=== PATIENT | female | born 1965 | race Caucasian/White ===

== ENCOUNTER 2016-10-14 13:40 | Observation (INO) ==
[2016-10-14] MEDS ORDERED: DILAUDID IV PRN (15:40)
[2016-10-14] MEDS ORDERED: ZOFRAN IV PRN (15:41)
[2016-10-14 16:21] LABS: MANUAL DIFF NEEDED? NO
[2016-10-14 16:33] LABS: BASO% 0.3 % (0.0-0.8); EOS# 0.08 X1000 (0.0-0.7); EOS% 0.8 % (0.0-10.0); HEMATOCRIT 39.1 % (37.0-47.0); HEMOGLOBIN 12.9 g/dL (12.0-16.0); IMM GRAN# 0.02 X1000 (0.0-0.04); IMM GRAN% 0.2 % (0.0-0.5); LYMPH# 1.78 X1000 (1.2-3.4); LYMPH% 16.9 % (20.5-51.1); MCH 30.9 PG (27-31); MCV 93.8 FL (81-99); MONO# 0.73 X1000 (0.11-0.59); MONO% 6.9 % (1.7-9.3); MPV 10.8 FL (7.4-10.4); NEUT% 74.9 % (42.2-75.2); PLT 197 X1000 (130-400); RBC 4.17 XMIL (4.2-5.4)
--- NOTE | 2016-10-14 16:34 | Diag Imaging Result Doc PS360 ---
EXAM: ABDOMEN FLAT/UPRIGHT HISTORY: abdominal pain TECHNIQUE: Flat and upright abdomen COMMENT: There is some stool in the colon particularly in the ascending colon. There is no evidence of small bowel or gastric distention. No evidence organomegaly or mass is present. The regional skeleton appears to be intact. There are phleboliths in the pelvis. IMPRESSION: Nonspecific abdomen. Electronically signed by Jerome Lang 10/14/2016 4:32 PM
[2016-10-14 16:51] LABS: AGAP 12; ALBUMIN 4.2 g/dL (3.5-5.0); ALKALINE PHOSPHATASE 77 U/L (32-104); AMYLASE 31 U/L (20-200); BUN 11 mg/dL (8-22); CALCIUM 9.9 mg/dL (8.8-10.2); CHLORIDE 101 mmol/L (98-107); COSMO 276; GOT 18 U/L (10-30); GPT 23 U/L (10-36); LIPASE 21 U/L (13-60); POTASSIUM 3.4 mmol/L (3.5-5.1); SODIUM 138 mmol/L (136-145); TCO2 25 mmol/L (25-35); TOTAL PROTEIN 6.6 g/dL (6.3-8.3)
[2016-10-14] MEDS ORDERED: KLOR-CON PO ONE (17:17)
[2016-10-14] MEDS: PROTONIX IV SCH (17:51)
[2016-10-14] MEDS: SODIUM CHLORIDE 0.9% INJ SCH (17:51)
[2016-10-14] MEDS: NS 1,000 ML IV SCH (17:52)
[2016-10-14 18:57] LABS: URINE CULTURE NEEDED? NO; URINE SOURCE CLEAN CATCH
[2016-10-14 19:01] LABS: BILIRUBIN URINE NEGATIVE (NEGATIVE); BLOOD URINE TRACE (NEGATIVE); COLOR YELLOW; GLUCOSE URINE NEGATIVE (NEGATIVE); LEUKOCYTES URINE NEGATIVE (NEGATIVE); NITRITE URINE NEGATIVE (NEGATIVE); PROTEIN URINE TRACE mg/dL (NEGATIVE); SP GRAVITY URINE 1.012; TURBIDITY URINE CLEAR (CLEAR); URINE MICRO REVIEW NEEDED? YES; UROBILINOGEN URINE NORMAL (NORMAL)
[2016-10-14 19:10] LABS: UR EPITHELIAL CELLS <10 /HPF (<10); URINE BACTERIA NEGATIVE /HPF; URINE RBC <10 /HPF (<10); URINE WBC <10 /HPF (<10)
[2016-10-14 19:11] LABS: URINE CRYSTALS NONE SEEN
--- NOTE | 2016-10-14 19:38 | Diag Imaging Result Doc PS360 ---
EXAM: CT ABD/PELVIS W/PO AND IV CON HISTORY: abdominal pain TECHNIQUE: CT of the abdomen and pelvis with intravenous and oral contrast and dose reduction (clarity.) COMMENT: The current study is compared without of 08/08/2012. There is platelike atelectasis in both lower lobes. This was not previously present. The abdominal aorta is not distended and the mesenteric and renal arteries are patent. There is no evidence of nephrolithiasis. The liver, spleen, adrenal glands, and pancreas are within normal limits. The gallbladder is unremarkable. There is no evidence of bowel obstruction. There are diverticula in the descending colon. No significant adenopathy is present. Pelvis: There is diverticulosis in the sigmoid colon and acute diverticulitis in the proximal sigmoid colon. There is no discrete abscess demonstrated. There are some small ovarian cysts on the left the largest of which measures 14 mm. The urinary bladder is unremarkable. There is been hysterectomy. The appendix is normal in appearance. IMPRESSION: Sigmoid diverticulitis. Electronically signed by Jerome Lang 10/14/2016 7:36 PM
--- NOTE | 2016-10-14 21:59 | HISTORY AND PHYSICAL ---
CHIEF COMPLAINT: Abdominal pain. HISTORY OF PRESENT ILLNESS: Ms. Mcgraw is a 51-year-old white female patient, not doing well since Wednesday, complaining of pain in the lower abdomen, moderate in intensity, associated with fever, chills. The patient had some nausea, poor oral intake. She denied any diarrhea. Pain was coming and going, but patient claimed it was staying for a longer time. Decreased appetite. The patient was feeling weak. I evaluated patient in the office. She did have tenderness in the left lower quadrant. Also in the suprapubic area. I was concerned. Clinically patient was looking dehydrated and I decided to admit the patient for further care. The patient denied any blood or mucus in the stool. No abdominal distention. No vaginal discharge, spotting, bleeding. No dysuria or hematuria. The patient did have fever and chills. She denied any dysphagia or odynophagia. No unusual cough, expectoration, or hemoptysis. No typical chest pain, palpitation. No runny nose, stuffy nose, sinus drainage. No focal numbness, tingling, weakness. No heat or cold intolerance. Patient had unquantified weight loss. ALLERGIES: Tetanus vaccine and sulfa drugs. MEDICATIONS: Patient took some Mobic and Medrol Dosepak about 2 weeks ago. PAST MEDICAL HISTORY: Significant for hysterectomy. Patient had two hernia surgeries. Surgery for urinary incontinence. Vitamin D deficiency. Arthritis. SOCIAL HISTORY: . Nonsmoker. Denied alcohol or substance abuse. FAMILY HISTORY: Significant for hypertension, IDDM and hyperlipidemia. PHYSICAL EXAMINATION: GENERAL: Middle-aged white female patient, in mild distress. VITAL SIGNS: Blood pressure 126/79, pulse 98, respirations 20, temperature 99.1 degrees. SKIN: Normal turgor. HEENT: Head atraumatic, normocephalic. [place] conjunctivae. Anicteric sclerae. Extraocular muscle movement normal. Fundus cannot be penetrated. Good oral hygiene. Dry oral mucosa. Ears and nose benign. NECK: Supple. No JVD, thyromegaly or lymphadenopathy. CHEST: Bilateral good air entry present. No rales or rhonchi. CVS: S1 and S2 heard. No gallop or thrill. ABDOMEN: Soft, globular. Mild distention. Bowel sounds present. Tenderness left lower quadrant and hypogastric area. No guarding or rigidity. Hernial orifices normal. RECTAL: I did rectal exam. There was some stool, but no fecal impaction. No mass. EXTREMITIES: No cyanosis, clubbing. No acute DVT. 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 LABORATORY DATA: WBC count 10.55, hemoglobin 12.9, hematocrit 39.1. Platelet count was 197,000. Electrolytes fairly benign. Potassium was 3.4, calcium 9.9. Urinalysis was fairly benign. IMAGING: CT scan of the abdomen and pelvis did reveal sigmoid diverticulitis. Abdominal x-ray was benign. OVERALL CONSIDERATION: Sigmoid diverticulitis, hypokalemia, clinical dehydration, fever. PLAN: Admit patient. IV hydration. Pain management. Septic workup. Start the patient on IV antibiotics. Overall plan discussed with the patient and she is in agreement. cc: Raciel Fitzpatrick MD
[2016-10-14] MEDS: LEVAQUIN 750 MG/D5W 750 MG/150 ML IVPB IV SCH (22:22)
[2016-10-15] MEDS: NS 1,000 ML IV SCH ×3 (06:05→20:17)
[2016-10-15 06:14] LABS: MANUAL DIFF NEEDED? NO
[2016-10-15 06:20] LABS: BASO% 0.1 % (0.0-0.8); EOS# 0.09 X1000 (0.0-0.7); EOS% 1.2 % (0.0-10.0); HEMATOCRIT 39.6 % (37.0-47.0); HEMOGLOBIN 12.9 g/dL (12.0-16.0); LYMPH# 1.97 X1000 (1.2-3.4); LYMPH% 25.3 % (20.5-51.1); MCH 30.7 PG (27-31); MCHC 32.6 g/dL (33-37); MCV 94.3 FL (81-99); MONO# 0.69 X1000 (0.11-0.59); MONO% 8.9 % (1.7-9.3); MPV 10.8 FL (7.4-10.4); NEUT% 64.5 % (42.2-75.2); PLT 192 X1000 (130-400)
[2016-10-15] MEDS ORDERED: FIORICET PO PRN (06:30)
[2016-10-15 06:40] LABS: AGAP 11; ALBUMIN 3.6 g/dL (3.5-5.0); ALKALINE PHOSPHATASE 70 U/L (32-104); BUN 7 mg/dL (8-22); CALCIUM 10.2 mg/dL (8.8-10.2); CHLORIDE 104 mmol/L (98-107); COSMO 277; GOT 20 U/L (10-30); GPT 23 U/L (10-36); POTASSIUM 4.3 mmol/L (3.5-5.1); SODIUM 140 mmol/L (136-145); TCO2 25 mmol/L (25-35); TOTAL BILIRUBIN 0.68 mg/dL (0.20-1.00); TOTAL PROTEIN 6.3 g/dL (6.3-8.3)
--- NOTE | 2016-10-15 06:59 | PROGRESS NOTE ---
DATE: 10/15/2016 SUBJECTIVE: Ms Mcgraw is doing fair. She is still complaining of pain in the left lower quadrant. Some headache. No nausea or vomiting. She denied any diarrhea. No high-grade fever or chills. T-max was 99.1 degrees. No typical chest pain or palpitations. The patient's CT scan did reveal sigmoid diverticulitis. PHYSICAL EXAMINATION: Vital Signs: Her vital signs noted. Neck: Supple. No JVD. Lungs: Clear. Heart: S1 and S2 heard. Abdomen: Soft. No distention. Bowel sounds present. Tenderness in the left lower quadrant. No guarding or rigidity. Extremities: No cyanosis, clubbing, edema. 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 Able to move all 4 limbs. CONSIDERATION: 1. Sigmoid diverticulitis. 2. Hypokalemia. 3. Headache, most likely stress headache. PLAN: We will continue current treatment. I am going to add Flagyl. Her CBC results reviewed. Electrolytes are pending. I am going to add magnesium level. We will advance diet to GI soft diet from the evening. I am preparing her for possible discharge tomorrow. Continue rest of the treatment and close observation. Overall plan discussed with the patient. She is in agreement. cc: Raciel Fitzpatrick MD
[2016-10-15] MEDS: FLAGYL 500 MG/NS 500 MG/100 ML IVPB IV SCH ×3 (07:25→23:47)
[2016-10-15] MEDS: PROTONIX IV SCH (14:45)
[2016-10-15] MEDS: SODIUM CHLORIDE 0.9% INJ SCH (14:45)
[2016-10-15] MEDS: LEVAQUIN 750 MG/D5W 750 MG/150 ML IVPB IV SCH (20:17)
[2016-10-16] MEDS: FLAGYL 500 MG/NS 500 MG/100 ML IVPB IV SCH ×2 (05:42→06:02)
[2016-10-16] MEDS: NS 1,000 ML IV SCH (05:43)
--- NOTE | 2016-10-16 07:21 | DISCHARGE SUMMARY ---
ADMISSION DATE: 10/14/2016 DISCHARGE DATE: 10/16/2016 FINAL DISCHARGE DIAGNOSES: 1. Sigmoid diverticulitis. 2. Headache. 3. Hypokalemia. HISTORY: Ms. Mcgraw is a 51-year-old white female patient, admitted with abdominal pain, nausea, vomiting, some fever and chills. I evaluated the patient in the office, admitted her for further care. HOSPITAL COURSE: Initial workup CT scan did reveal sigmoid diverticulitis. The patient was treated with IV fluids, IV antibiotics, symptomatic treatment. Her clinical condition gradually improved. The patient is doing much better. She started eating well. Pain improved. No dysuria or hematuria. OBJECTIVE: Vital Signs: Noted. Neck: Supple. No JVD. Lungs: Clear. Heart: S1 and S2 heard. Abdomen: Soft. No distention. Bowel sounds present. Tenderness in the left lower quadrant, improved. Extremities: No cyanosis, clubbing, edema. Central Nervous System: Alert, awake, and able to move all 4 limbs. LABORATORY DATA: The patient's lab data done yesterday reviewed. CT scan of the abdomen and pelvis results reviewed and discussed with the patient. DISCHARGE PLAN AND INSTRUCTIONS: Overall, the patient received maximum benefit of hospitalization. I am planning to discharge her home on oral Levaquin and Flagyl. Advised her to be on soft diet. In case of more abdominal pain, nausea, vomiting, fever, chills, immediately call us back or go to the emergency room. Follow up with me next week. In case of more distress, call us back or go to the emergency room. cc: Raciel Fitzptarick MD
[2016-10-16 07:59] VITALS: BP 127/77
== END 2016-10-16 09:54 | disposition home or self-care (01) ==
LOC: DIRADM → 4N 14:26
PROVIDERS: ADMIT Internal Medicine; ATTEND Internal Medicine